=== PATIENT | male | born 1970 | race Caucasian/White ===

== ENCOUNTER 2019-09-08 21:48 | Emergency (ER) | payer MEDICAID, BC ==
[~2019-09-08] VITALS: Ht 172.7 cm; Wt 144.6 kg
[~2019-09-08 21:48] MED LIST: LOSA50TA64 PO
--- NOTE | 2019-09-08 23:50 | NUR ---
Dr. Cui is with the patient.
[2019-09-09] MEDS ORDERED: TETanus/Pertussis (Acell)/Diphther VAC/PF (Tdap-Adult) 0.5ml syringe IMVAC ONE (00:10)
[2019-09-09] MEDS ORDERED: ibuprofen tablet 400 MG TABLET PO ONE (00:25)
[2019-09-09 00:31] VITALS: BP 154/84
== END 2019-09-09 00:34 | disposition home or self-care (01) ==
LOC: ER 21:50
DX: S61.210A Laceration without foreign body of right index finger without damage to nail, initial encounter (principal); Z79.899 Other long term (current) drug therapy; W26.0XXA Contact with knife, initial encounter; Y93.89 Activity, other specified; Y92.89 Other specified places as the place of occurrence of the external cause; Y99.9 Unspecified external cause status
CPT/HCPCS: 12001; 90471; 90715; 99283